=== PATIENT | female | born 1990 | race Caucasian/White ===

== ENCOUNTER 2017-07-18 00:18 | Inpatient (IN) | payer MEDICAID ==
[2017-07-18] VITALS (8 sets, daily range): BP systolic 99–138; BP diastolic 55–89
[~2017-07-18] VITALS: Ht 157.5 cm; Wt 111.1 kg
[2017-07-18 01:28] LABS: microscopic required? NO
[2017-07-18 02:08] LABS: UA SPECIFIC GRAVITY <=1.005 (1.005-1.035); urine erythrocyte NEGATIVE (NEGATIVE)
[2017-07-18 02:22] LABS: ALKALINE PHOSPHATASE 143 U/L (46-116); ALT/SGPT 48 U/L (14-59); AST/SGOT 29 U/L (15-37); BILIRUBIN TOTAL 0.3 mg/dL (0.20-1.00); C REACTIVE PROTEIN 4.6 mg/dL (<=0.9); CALCIUM 8.6 mg/dL (8.5-10.1); CARBON DIOXIDE 27.2 mmol/L (21-32); CHLORIDE SERUM 96 mmol/L (98-107); CREATININE SERUM 0.7 mg/dL (0.6-1.0); GFR1 > 60 mL/min; POTASSIUM SERUM 3.8 mmol/L (3.5-5.1); SODIUM SERUM 130 mmol/L (136-145); T3 TOTAL 0.97 ng/mL; TOTAL PROTEIN, SERUM 7.8 g/dL (6.4-8.2)
[2017-07-18 02:32] LABS: CK-MB < 0.5 ng/mL (0-3.6); CREATINE KINASE 26 U/L (26-192)
[2017-07-18 02:34] LABS: ALBUMIN 3.1 g/dL (3.4-5.0); FREE T4 1.16 ng/dL (0.76-1.46); FREE THYROXINE INDEX 3.1 ug/dL (1.4-4.5); T4(THYROXINE) 8.3 ug/dL (4.7-13.3)
[2017-07-18 02:35] LABS: GLUCOSE SERUM 520 mg/dL (74-106)
[2017-07-18 03:06] LABS: PLATELET COUNT 386 x10^3mcL (130-400)
[2017-07-18 03:10] LABS: BASOPHIL % 2.3 % (0-2)
[2017-07-18 04:23] LABS: MAGNESIUM 1.8 mg/dL (1.8-2.4); PHOSPHOROUS 4.5 mg/dL (2.5-4.9)
[2017-07-18 04:25] LABS: CHOLESTEROL/HDL RATIO 4.6
[2017-07-18 04:43] LABS: ERYTHROCYTE SED RATE 22 mm/hr (0-20)
[2017-07-18] MEDS ORDERED: METFORMIN HYD1000 M2 PO (11:34)
[2017-07-19 06:10] VITALS: BP 110/67
[2017-07-19 06:23] LABS: BASOPHIL % 0.3 % (0-2); PLATELET COUNT 368 x10^3mcL (130-400)
[2017-07-19 06:37] LABS: RED CELL DISTRIBUTION WIDTH 16.2 % (11.5-14.5)
[2017-07-19 06:52] LABS: CALCIUM 8.2 mg/dL (8.5-10.1); CARBON DIOXIDE 24.9 mmol/L (21-32); CHLORIDE SERUM 105 mmol/L (98-107); CREATININE SERUM 0.5 mg/dL (0.6-1.0); GFR1 > 60 mL/min; GLUCOSE SERUM 213 mg/dL (74-106); POTASSIUM SERUM 3.7 mmol/L (3.5-5.1); SODIUM SERUM 138 mmol/L (136-145)
[2017-07-19 07:37] LABS: rbc morphology (normal/abnorm) ABNORMAL (NORMAL)
[2017-07-19 09:38] VITALS: BP 108/67
[2017-07-19 11:24] VITALS: BP 108/67
== END 2017-07-19 12:40 | disposition home or self-care (01) | DRG 420 ==
LOC: ED 00:18 → DU 03:06
PROVIDERS: Specialist; ADMIT Family Medicine
DX: E11.00 Type 2 diabetes mellitus with hyperosmolarity without nonketotic hyperglycemic-hyperosmolar coma (NKHHC) (principal); D68.69 Other thrombophilia; E44.0 Moderate protein-calorie malnutrition; Z68.41 Body mass index [BMI] 40.0-44.9, adult; E66.01 Morbid (severe) obesity due to excess calories; E87.1 Hypo-osmolality and hyponatremia; E11.65 Type 2 diabetes mellitus with hyperglycemia; D50.9 Iron deficiency anemia, unspecified; Z79.84 Long term (current) use of oral hypoglycemic drugs
CPT/HCPCS: 36600; 82962; 83880; 84439; J1815; J2405; J7030; Q0092

== ENCOUNTER 2018-04-26 21:35 | Emergency (ER) | payer MEDICAID ==
[~2018-04-26] VITALS: Ht 157.5 cm; Wt 113.4 kg
[~2018-04-26 21:35] MED LIST: METFORMIN HYD1000 M2 PO
[2018-04-26 21:41] VITALS: Ht 157.5 cm; Wt 113.4 kg
[2018-04-26 23:35] LABS: BASOPHIL % 0.5 % (0-2); PLATELET COUNT 343 x10^3mcL (130-400)
[2018-04-26 23:36] LABS: RED CELL DISTRIBUTION WIDTH 17.2 % (11.5-14.5)
[2018-04-26 23:39] LABS: CALCIUM 8.1 mg/dL (8.5-10.1); CARBON DIOXIDE 26.9 mmol/L (21-32); CHLORIDE SERUM 104 mmol/L (98-107); CREATININE SERUM 0.6 mg/dL (0.6-1.0); GFR1 > 60 mL/min; GLUCOSE SERUM 113 mg/dL (74-106); POTASSIUM SERUM 3.5 mmol/L (3.5-5.1); SODIUM SERUM 139 mmol/L (136-145)
[2018-04-26 23:45] LABS: ALKALINE PHOSPHATASE 91 U/L (46-116); ALT/SGPT 24 U/L (14-59); AST/SGOT 16 U/L (15-37); BILIRUBIN TOTAL 0.3 mg/dL (0.20-1.00); LIPASE 263 IU/L (73-393); TOTAL PROTEIN, SERUM 7.1 g/dL (6.4-8.2)
[2018-04-27 02:15] VITALS: BP 133/75
== END 2018-04-27 02:15 | disposition home or self-care (01) ==
LOC: ED 21:35
PROVIDERS: Emergency Medicine
DX: I51.7 Cardiomegaly (principal); E11.9 Type 2 diabetes mellitus without complications; Z90.49 Acquired absence of other specified parts of digestive tract; Z86.2 Personal history of diseases of the blood and blood-forming organs and certain disorders involving the immune mechanism
CPT/HCPCS: 36415; 83880; Q0092

== ENCOUNTER 2019-02-15 12:51 | Emergency (ER) | payer MEDICAID ==
[~2019-02-15] VITALS: Ht 165.1 cm; Wt 122.9 kg
[2019-02-15 12:58] VITALS: Ht 165.1 cm; Wt 122.9 kg
[2019-02-15 13:28] LABS: BASOPHIL % 0.3 % (0-2)
[2019-02-15 13:35] LABS: ALBUMIN 3.7 g/dL (3.4-5.0); ALKALINE PHOSPHATASE 130 U/L (46-116); ALT/SGPT 48 U/L (14-59); AST/SGOT 29 U/L (15-37); BILIRUBIN TOTAL 0.4 mg/dL (0.20-1.00); CALCIUM 9.6 mg/dL (8.5-10.1); CARBON DIOXIDE 30.8 mmol/L (21-32); CHLORIDE SERUM 95 mmol/L (98-107); CREATININE SERUM 0.8 mg/dL (0.6-1.0); GFR1 > 60 mL/min; POTASSIUM SERUM 3.8 mmol/L (3.5-5.1); SODIUM SERUM 134 mmol/L (136-145)
[2019-02-15 13:37] LABS: TOTAL PROTEIN, SERUM 8.4 g/dL (6.4-8.2)
[2019-02-15 13:38] LABS: GLUCOSE SERUM 455 mg/dL (74-106)
[2019-02-15 13:40] LABS: PLATELET COUNT 480 x10^3mcL (130-400); RED CELL DISTRIBUTION WIDTH 15.6 % (11.5-14.5)
[2019-02-15 16:41] VITALS: BP 121/66
== END 2019-02-15 16:42 | disposition home or self-care (01) ==
LOC: ED 12:51
PROVIDERS: Emergency Medicine
DX: E11.65 Type 2 diabetes mellitus with hyperglycemia (principal); E86.0 Dehydration; Z86.2 Personal history of diseases of the blood and blood-forming organs and certain disorders involving the immune mechanism; Z90.49 Acquired absence of other specified parts of digestive tract
CPT/HCPCS: 82962; J1815; J7030

== ENCOUNTER 2019-10-06 21:23 | Emergency (ER) | payer MEDICAID ==
[~2019-10-06] VITALS: Ht 157.5 cm; Wt 107.0 kg
[2019-10-06 21:34] VITALS: Ht 157.5 cm; Wt 107.0 kg
[2019-10-07 01:55] VITALS: BP 127/79
== END 2019-10-07 01:55 | disposition home or self-care (01) ==
LOC: ED 21:23
DX: S46.912A Strain of unspecified muscle, fascia and tendon at shoulder and upper arm level, left arm, initial encounter (principal); F17.210 Nicotine dependence, cigarettes, uncomplicated; E11.9 Type 2 diabetes mellitus without complications; Z87.19 Personal history of other diseases of the digestive system; W18.30XA Fall on same level, unspecified, initial encounter; Y93.89 Activity, other specified; Y92.89 Other specified places as the place of occurrence of the external cause; Y99.8 Other external cause status
CPT/HCPCS: 99406

== ENCOUNTER 2020-03-11 23:01 | Emergency (ER) | payer MEDICAID ==
[~2020-03-11] VITALS: Ht 157.5 cm; Wt 103.9 kg
[2020-03-11 23:09] VITALS: Ht 157.5 cm; Wt 103.9 kg
[2020-03-12 01:26] VITALS: BP 138/89
== END 2020-03-12 01:26 | disposition home or self-care (01) ==
LOC: ED 23:01
DX: L03.116 Cellulitis of left lower limb (principal); E11.9 Type 2 diabetes mellitus without complications; Z90.49 Acquired absence of other specified parts of digestive tract; W20.8XXA Other cause of strike by thrown, projected or falling object, initial encounter; Y93.89 Activity, other specified; Y92.89 Other specified places as the place of occurrence of the external cause; Y99.8 Other external cause status
CPT/HCPCS: Q0092

== ENCOUNTER 2020-05-26 01:13 | Emergency (ER) | payer MEDICAID ==
[~2020-05-26] VITALS: Ht 157.5 cm; Wt 101.2 kg
[2020-05-26 01:20] VITALS: Ht 157.5 cm; Wt 101.2 kg
[2020-05-26 02:25] LABS: CALCIUM 8.4 mg/dL (8.5-10.1); CARBON DIOXIDE 21.7 mmol/L (21-32); CHLORIDE SERUM 98 mmol/L (98-107); CREATININE SERUM 0.8 mg/dL (0.6-1.0); GFR1 > 60 mL/min; GLUCOSE SERUM 406 mg/dL (74-106); POTASSIUM SERUM 4.2 mmol/L (3.5-5.1); SODIUM SERUM 132 mmol/L (136-145)
[2020-05-26 02:29] LABS: ALKALINE PHOSPHATASE 109 U/L (46-116); ALT/SGPT 25 U/L (14-59); AST/SGOT 14 U/L (15-37); BASOPHIL % 0.6 % (0-2); BILIRUBIN TOTAL 0.51 mg/dL (0.20-1.00); LIPASE 207 IU/L (73-393); RED CELL DISTRIBUTION WIDTH 13.4 % (11.5-14.5); TOTAL PROTEIN, SERUM 7.2 g/dL (6.4-8.2)
[2020-05-26 02:34] LABS: PLATELET COUNT 453 x10^3mcL (130-400)
[2020-05-26 02:36] LABS: ALBUMIN 3.2 g/dL (3.4-5.0)
[2020-05-26 05:05] VITALS: BP 121/76
== END 2020-05-26 05:05 | disposition home or self-care (01) ==
LOC: ED 01:13
PROVIDERS: Student in an Organized Health Care Education/Training Program
DX: R10.30 Lower abdominal pain, unspecified (principal); N89.8 Other specified noninflammatory disorders of vagina; E11.65 Type 2 diabetes mellitus with hyperglycemia; Z86.2 Personal history of diseases of the blood and blood-forming organs and certain disorders involving the immune mechanism; Z90.49 Acquired absence of other specified parts of digestive tract
CPT/HCPCS: 82962; 87491; 87591; J1815; J1885; J7030